=== PATIENT | female | born 1975 | race Caucasian/White ===

== ENCOUNTER 2017-10-20 03:54 | Emergency (ER) | payer OTHER ==
[2017-10-20 04:21] LABS: BASOPHILS # (AUTO) 0.1 10^3/uL (0.0-0.1); BASOPHILS % (AUTO) 0.9 %; EOSINOPHILS % (AUTO) 0.7 %; HGB - HEMOGLOBIN 13.6 g/dL (12.0-16.0); LYMPHOCYTES # (AUTO) 1.1 10^3/uL (1.5-3.5); LYMPHOCYTES % (AUTO) 16.2 %; MEAN CORPUSCULAR HEMOGLOBIN 30.8 pg (27.0-31.0); MEAN CORPUSCULAR HGB CONC 34.8 g/dL (32.0-36.0); MEAN CORPUSCULAR VOLUME 88.7 fL (81.0-99.0); MEAN PLATELET VOLUME 8.8 fL (7.9-10.8); MONOCYTES # (AUTO) 0.4 10^3/uL (0.0-1.0); MONOCYTES % (AUTO) 6.7 %; NEUTROPHILS % (AUTO) 75.5 %; PLT - PLATELET COUNT 189 10^3/uL (130-450); RED CELL DISTRIBUTION WIDTH 12.9 % (12.0-15.0); WHITE BLOOD COUNT 6.6 x10^3/uL (4.8-10.8)
[2017-10-20 04:31] LABS: ALBUMIN/GLOBULIN RATIO 1.5 (1.0-2.2); BILIRUBIN,TOTAL 1.1 mg/dL (0.2-1.0); CALCIUM 8.7 mg/dL (8.5-10.3); CREATININE 0.8 mg/dL (0.4-1.0); TOTAL PROTEIN 6.6 g/dL (6.7-8.2)
[2017-10-20] MEDS ORDERED: LORazepam 2 MG/ML VIAL IVP STA (04:37)
[2017-10-20 05:02] LABS: T4 (THYROXINE) 10.24 ug/dL (6.09-12.23)
[2017-10-20 05:06] LABS: THYROID STIMULATING HORMONE 1.27 uIU/mL (0.34-5.60)
[2017-10-20] MEDS ORDERED: SODIUM CHLORIDE 0.9% 1,000 ML IV ONE (05:07)
[2017-10-20] MEDS ORDERED: POTASSIUM BICARB 25 MEQ TABLET PO STA (05:16)
--- NOTE | 2017-10-20 05:43 | ED Physician Documentation ---
History of Present Illness - Stated complaint Stated Complaint: RAPID HEART RATE - Chief complaint Chief Complaint: Cardiac - History obtained from History obtained from: Patient - History of Present Illness Timing: Prior to arrival, Today - Additonal information Additional information: 42-year-old female with a history in the past year of hyperthyroidism has developed acute sensation of racing heart and shortness of breath. 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 She this evening feels that her heart is racing and she has tingling in her fingers and the pain in her forearms. She has had something similar to this happen when she was diagnosed with the hyperthyroidism. She relates being on medication for several months and having her numbers return to normal and she is now off of medication for about 1 month. She is worried about return of her symptoms related to hyperthyroidism. Review of Systems Constitutional: denies: Fever, Chills, Myalgias Eyes: denies: Decreased vision Ears: denies: Ear pain Nose: denies: Rhinorrhea / runny nose, Congestion Throat: denies: Sore throat Cardiac: reports: Palpitations. denies: Chest pain / pressure, Pedal edema, Calf pain Respiratory: reports: Dyspnea. denies: Cough, Hemoptysis, Wheezing GI: denies: Abdominal Pain, Nausea, Vomiting : denies: Dysuria, Frequency Skin: denies: Rash, Lesions Musculoskeletal: reports: Extremity pain. denies: Neck pain, Back pain Neurologic: reports: Numbness. denies: Generalized weakness, Focal weakness, Difficulty speaking, Headache, Head injury PD PAST MEDICAL HISTORY - Past Medical History Past Medical History: Yes Endocrine/Autoimmune: HyPERthyroidism - Past Surgical History Past Surgical History: No - Present Medications Home Medications: Ambulatory Orders Medication Instructions Recorded Confirmed Lorazepam [Ativan] 1 mg PO Q8HR PRN #12 tablet 10/20/17 - Allergies Allergies/Adverse Reactions: Allergies Allergy/AdvReac Type Severity Reaction Status Date / Time No Known Drug Allergies Allergy Verified 10/20/17 04:46 - Social History Does the pt smoke?: No Smoking Status: Never smoker Does the pt drink ETOH?: Yes Does the pt have substance abuse?: No - Immunizations Immunizations are current?: Yes - POLST Patient has POLST: No PD ED PE NORMAL - Vitals Vital signs reviewed: Yes (hypertensive ) - General General: Alert and oriented X 3, Well developed/nourished, Other (appears anxious with hyperventilation and a normal heart rate. ) - HEENT HEENT: Atraumatic, PERRL, EOMI - Neck Neck: Supple, no meningeal sign, No bony TTP, No adenopathy, Other (thyroid is palpable without nodules and is non-tender mildly generous in size. ) - Cardiac Cardiac: RRR, No murmur - Respiratory Respiratory: No respiratory distress, Clear bilaterally - Abdomen Abdomen: Soft, Non tender - Back Back: No CVA TTP, No spinal TTP - Derm Derm: Normal color, Warm and dry, No rash - Extremities Extremities: No deformity, No edema - Neuro Neuro: Alert and oriented X 3, datapower developer 2-12 intact, No motor deficit, No sensory deficit, Normal speech Eye Opening: Spontaneous Motor: Obeys Commands Verbal: Oriented GCS Score: 15 - Psych Psych: Normal affect, Other (mood is anxious ) Results - Vitals Vitals: Vital Signs - 24 hr 10/20/17 10/20/17 10/20/17 04:00 04:46 05:14 Temperature 36.2 C L Heart Rate 74 64 76 Respiratory 15 19 18 Rate Blood Pressure 138/87 H 126/76 126/77 O2 Saturation 100 97 96 Oxygen O2 Source Room air - EKG (time done) 0407 Rate: Rate (enter#) (81) [place]: LAD (borderline) Intervals: Prolonged QT (borderline) Compare to prior EKG: Old EKG unavailable Computer interpretation: Agree with computer - Labs Labs: Laboratory Tests 10/20/17 10/20/17 10/20/17 04:05 04:05 04:05 WBC 6.6 RBC 4.40 Hgb 13.6 Hct 39.0 MCV 88.7 MCH 30.8 MCHC 34.8 RDW 12.9 Plt Count 189 MPV 8.8 Neut # (Auto) 5.0 Lymph # (Auto) 1.1 L [place] # (Auto) 0.4 Eos # (Auto) 0.0 Baso # (Auto) 0.1 Absolute Nucleated RBC 0.00 Nucleated RBC % 0.0 Sodium 137 Potassium 3.2 L Chloride 106 Carbon Dioxide 24 Anion Gap 7.0 BUN 16 Creatinine 0.8 Estimated GFR (MDRD) 79 L Glucose 113 H Calcium 8.7 Total Bilirubin 1.1 H AST 18 ALT 16 Alkaline Phosphatase 36 L Troponin I < 0.04 Total Protein 6.6 L Albumin 4.0 Globulin 2.6 Albumin/Globulin Ratio 1.5 Lipase 32 TSH Thyroxine (T4) 10/20/17 04:05 WBC RBC Hgb Hct MCV MCH MCHC RDW Plt Count MPV Neut # (Auto) Lymph # (Auto) [place] # (Auto) Eos # (Auto) Baso # (Auto) Absolute Nucleated RBC Nucleated RBC % Sodium Potassium Chloride Carbon Dioxide Anion Gap BUN Creatinine Estimated GFR (MDRD) Glucose Calcium Total Bilirubin AST ALT Alkaline Phosphatase Troponin I Total Protein Albumin Globulin Albumin/Globulin Ratio Lipase TSH 1.27 Thyroxine (T4) 10.24 PD MEDICAL DECISION MAKING - ED course Complexity details: reviewed results, re-evaluated patient, considered differential, d/w patient ED course: 42-year-old female who [place] and has a prior history of thyroid abnormality arrives to the emergency department in the early hours the morning with the chief complaint that she has having a rapid heart rate. She is found to have a normal sinus rhythm with normal axes and intervals on her electrocardiogram and while she is complaining of this rapid heart rate the monitor reads 68. She appears to have some mild carpal pedal spasm on the right side and her symptoms are consistent with acute hyperventilation. She is concerned about her thyroid functions and these are measured and are normal as well. She is administered half a milligram of Ativan intravenously with some saline and has improvements in her symptoms. She cannot herself explain a reason for anxiety. She states that she has come to [facility] yearly for the [place] it is not a new situation for her. She is approximately 7 years ago she does have a job she has her children with her here for 8 and 10 and are behaving well. 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 She has a house to live in. She is given a prescription for some Ativan to use on a as needed basis and will follow up with her primary when she returns home. - Sepsis Event Vital Signs: Vital Signs - 24 hr 10/20/17 10/20/17 10/20/17 04:00 04:46 05:14 Temperature 36.2 C L Heart Rate 74 64 76 Respiratory 15 19 18 Rate Blood Pressure 138/87 H 126/76 126/77 O2 Saturation 100 97 96 Oxygen O2 Source Room air Departure - Departure Disposition: Home, Self Care Clinical Impression: Panic attack Condition: Stable Instructions: ED Panic Attack, ED Stress React Follow-Up: Your, doctor [Other] Prescriptions: Lorazepam [Ativan] 1 mg PO Q8HR PRN #12 tablet PRN Reason: Anxiety
[2017-10-20 06:26] VITALS: BP 126/74
== END 2017-10-20 06:27 | disposition home or self-care (01) ==
LOC: ED 03:54
DX: F41.0 Panic disorder [episodic paroxysmal anxiety] (principal); E05.90 Thyrotoxicosis, unspecified without thyrotoxic crisis or storm
CPT/HCPCS: 36415; 80053; 83690; 84436; 84443; 84484; 85025; 93005; 96361; 96374; 99283; 99284; A9270; J2060